=== PATIENT | male | born 1955 | race Caucasian/White ===

== ENCOUNTER 2020-03-21 07:29 | Emergency (ER) | payer OTHER ==
[~2020-03-21] VITALS: Ht 172.7 cm; Wt 93.0 kg
[2020-03-21 07:33] VITALS: BP 140/98
--- NOTE | 2020-03-21 07:44 | NUR ---
64/M with cc: abd pain x last night Ate apple and orange yesterday around 4pm and started feeling gurgling in abd and indigestion sensation soon thereafter. Ate dinner at 8pm yesterday and soon after started RUQ pain radiating to mid abd. Pain is now at mid abd. Pain intermittent and described as "squeezing". Nausea without vomiting. Denies fever. last bm last night hx--HTN rx---metoprolol
[2020-03-21] MEDS ORDERED: ONDANSETRON 4 MG ODT PO ONE (07:45)
[2020-03-21] MEDS ORDERED: DICYCLOMINE HCL LIQUID 20 MG, ALUMINUM HYD/MAG/SIMETHICONE 30 ML, LIDOCAINE VISCOUS 2% ... PO ONE ×3 (07:45)
--- NOTE | 2020-03-21 07:45 | NUR ---
DR. TALBERT EVALUATING PT AT BEDSIDE
[2020-03-21] MEDS ORDERED: LIDOCAINE VISCOUS 2% 20 ML UDC ONE (07:49)
[2020-03-21] MEDS ORDERED: DICYCLOMINE HCL LIQUID 10 MG/5 ML UDC ONE (07:49)
[2020-03-21] MEDS ORDERED: ALUMINUM HYD/MAG/SIMETHICONE 30 ML UDC ONE (07:49)
--- NOTE | 2020-03-21 07:54 | NUR ---
OLERICULTURIST AT BEDSIDE FOR BLOOD DRAW
[2020-03-21 08:12] LABS: BASOPHILS % (AUTO) 0.3 % (0.0-2.0); EOSINOPHILS % (AUTO) 0.1 % (0.0-4.0); HEMATOCRIT 48.3 % (36-52); HEMOGLOBIN 16.5 g/dL (12.0-18.0); LYMPHOCYTES # (AUTO) 1.4 K/uL (2.0-11.5); MEAN CORPUSCULAR HEMOGLOBIN 31 pg (27-31); MEAN CORPUSCULAR HGB CONC 34 g/dL (33-37); MEAN CORPUSCULAR VOLUME 91.3 fL (80-94); MONOCYTES # (AUTO) 0.5 K/uL (0.8-1.0); MONOCYTES % (AUTO) 5.1 % (1.7-9.3); NEUTROPHILS # (AUTO) 7.6 K/uL (1.8-7.7); NEUTROPHILS % (AUTO) 79.5 % (42.2-75.2); PLATELET COUNT (AUTO) 282 K/uL (140-450); RED BLOOD CELL COUNT(AUTO) 5.29 MIL/uL (4.20-6.10); RED CELL DISTRIBUTION WIDTH 13.4 % (11.6-13.7); WHITE BLOOD COUNT (AUTO) 9.6 K/uL (4.8-10.8)
[2020-03-21 08:23] LABS: ALBUMIN 4.5 g/dL (3.4-5.0); ANION GAP 11.9 (8-16); CARBON DIOXIDE 29.2 mmol/L (21-32); POTASSIUM 4.1 mmol/L (3.5-5.1); TOTAL BILIRUBIN 0.8 mg/dL (0.0-1.0)
--- NOTE | 2020-03-21 08:24 | NUR ---
PT DENIES NAUSEA AT THIS TIME. STATES SOME RELIEF OF "PRESSURE" IN ABD.
--- NOTE | 2020-03-21 08:51 | NUR ---
DR. TALBERT RE-EVALUATING PT AT BEDSIDE
--- NOTE | 2020-03-21 09:00 | NUR ---
Patient discharged with v/s stable. Written and verbal after care instructions given and explained. Patient alert, oriented and verbalized understanding of instructions. Ambulatory with steady gait. All questions addressed prior to discharge. ID band removed. Patient advised to follow up with PMD. Rx of PEPCID AND ZOFRAN given. Patient educated on indication of medication including possible reaction and side effects. Opportunity to ask questions provided and answered.
[2020-03-21 09:01] VITALS: BP 140/98
== END 2020-03-21 09:00 | disposition home or self-care (01) ==
LOC: MED 07:29
DX: K29.70 Gastritis, unspecified, without bleeding (principal); I10 Essential (primary) hypertension
CPT/HCPCS: 36415; 80053; 83690; 84484; 85025; 93005; 99284; Q0162